=== PATIENT | female | born 1985 | race Two or more races ===

== ENCOUNTER 2019-08-06 11:28 | Emergency (ER) | payer MEDICAID ==
[2019-08-06 11:46] VITALS: BP 99/63
--- NOTE | 2019-08-06 12:22 | UC ---
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 States she took a test 6 weeks ago and it was positive. Last night developed vaginal bleeding with wiping every time she used the bathroom, is less today and is now dark brown. No abdominal pain or cramping. Has yet to find an [employer] due to insurance reasons LMP: 05/16. No vaginal discharge. No itching. No dysuria. Nauseated. no vomiting. no fever or flu like symptoms Has a 5 year old and had an prior to that. - History of Current Complaint Chief Complaint: [facility] Stated Complaint: WITH SPOTTING Time Seen by Provider: 08/06/19 12:00 Hx Last Menstrual Period: Beginning of April Pain Intensity: 0 - Allergy/Home Medications Allergies/Adverse Reactions: Allergies Allergy/AdvReac Type Severity Reaction Status Date / Time Penicillins Allergy Hives Verified 08/06/19 11:39 Home Medications: Home Medications Vitamin TAB* 1 tab DAILY 08/06/19 [History Confirmed 08/06/19] PMH/Surg Hx/FS Hx/Imm Hx Previously Healthy: Yes - Surgical History Surgical History: Yes Surgery Procedure, Year, and Place: C-sectionx1 - Family History Known Family History: Positive: None - Social History Alcohol Use: None Substance Use Type: None Smoking Status (MU): Never Smoked Tobacco Review of Systems All Other Systems Reviewed And Are Negative: Yes Physical Exam Triage Information Reviewed: Yes Appearance: Well-Appearing Vital Signs: Initial Vital Signs Temp 98.6 F 08/06/19 11:40 Pulse 68 08/06/19 11:40 Resp 16 08/06/19 11:40 BP 99/63 08/06/19 11:40 Pulse Ox 100 08/06/19 11:40 ENT: Positive: Normal ENT inspection Neck: Positive: Supple Respiratory: Positive: Lungs clear, Normal breath sounds Cardiovascular: Positive: RRR, No Murmur Abdomen Description: Positive: Nontender, Soft, Other: - No CVA tenderness Course/Dx - Course Course Of Treatment: This is a 33 year old who by LMP is 11 weeks and is having some vaginal bleeding. Now abdominal pain US: 20 mm 7 weeks gestation No pole or yolk sac U/A: +2 blood likely from vaginal source Had some nausea in office. Stated that if her dates are correct then this is likely a miscarriage. If her dates are wrong then it may be too early to tell. Contacted Dr. Doan's office (states she was having a hard time getting in to see anyone due to her insurance) She has been seen there before - recommend serum HCG, type and screen and CBC - labs drawn here prior to discharge Plan REturn to lab here on Wednesday 08/09 to get a repeat serum HCG Follow up at Dr. Doan's office on friday 08/11 at 1:30 - [address] [address], [phone] If bleeding becomes worse, go to the ER If you have bleeding and abdominal pain or cramping go to the ER - Diagnoses Provider Diagnosis: Vaginal bleeding affecting early Discharge ED - Sign-Out/Discharge Documenting (check all that apply): Patient Departure All imaging exams completed and their final reports reviewed: Yes - Discharge Plan Condition: Fair Disposition: HOME Patient Education Materials: Threatened Miscarriage (ED) Print Language: BURMESE Referrals: Abdirahman Armas MD [Primary Care Provider] - Additional Instructions: REturn to lab here on Wednesday 08/09 to get a repeat serum HCG Follow up at Dr. Doan's office on friday 08/11 at 1:30 - [address], [phone] If bleeding becomes worse, go to the ER If you have bleeding and abdominal pain or cramping go to the ER - Billing Disposition and Condition Condition: FAIR Disposition: Home
[2019-08-06 18:28] LABS: ABS Basophils 0.1 10^3/ul (0-0.2); ABS Eosinophils 0.1 10^3/ul (0-0.6); ABS Lymphocytes 2.2 10^3/ul (1.0-4.8); ABS Monocytes 0.3 10^3/ul (0-0.8); ABS Neutrophils 3.8 10^3/ul (1.5-7.7); Eosinophil % 2.2 %; Hematocrit 42 % (35-47); Hemoglobin 14.2 g/dL (12.0-16.0); Mean Corpuscular HGB Conc 34 g/dL (31-36); Mean Corpuscular Hemoglobin 31 pg (27-31); Mean Corpuscular Volume 92 fL (80-97); Mean Platelet Volume 10.8 fL (7.4-10.4); Nucleated Red Blood Cells % 0.1; Platelet Count 175 10^3/uL (150-450); Red Cell Distribution Width 14 % (10-15); White Blood Count 6.5 10^3/uL (3.5-10.8)
== END 2019-08-06 13:45 | disposition home or self-care (01) ==
LOC: UCCORT 11:28
DX: O20.9 Hemorrhage in early pregnancy, unspecified (principal); Z3A.01 Less than 8 weeks gestation of pregnancy; Z88.0 Allergy status to penicillin
CPT/HCPCS: 36415; 76801; 81003; 84702; 85025; 86850; 86900; 86901; 99211; G0463